=== PATIENT | female | born 1970 | race Two or more races ===

== ENCOUNTER → 2025-03-01 | Outpatient (CLI) | payer MEDICAID, SELFPAY ==
--- NOTE | 2025-03-01 14:14 | XR_ITS ---
Examination: CT abdomen without intravenous contrast. Coronal 2-D reconstructions. Sagittal 2-D reconstructions. Date and time of exam:March 01, 2025 1449 hours INDICATIONS: Right upper abdominal pain beginning one week ago CTDI: vol (mGy): 12.9 DLP: (mGycm): 537 Technique: Axial images of the abdomen have been obtained, 3 mm slice thickness, without intravenous contrast 2-D sagittal coronal reconstructions Low dose protocols were performed. One or more of the following dose reduction techniques were used; automated exposure control, adjustment of the mA and/or KV according to patient size, use of iterative reconstruction technique. Findings: No focal liver or splenic lesions Absent gallbladder No common bile duct stones noted No pancreatic or adrenal mass Moderate renal parenchymal scar formation No renal or ureteral calculi, no hydronephrosis Aorta normal size No pericecal inflammatory change No bowel obstruction IMPRESSION: No acute process in the abdomen Given the patient's presentation, consider hepatobiliary sonography follow-up
== END | disposition home or self-care (01) ==
LOC: SCAT 13:49
PROVIDERS: PCP Nurse Practitioner Family; Referring Provider Nurse Practitioner Family; Visit Provider Nurse Practitioner Family
DX: R19.01 Right upper quadrant abdominal swelling, mass and lump (principal)
CPT/HCPCS: 74150

== ENCOUNTER → 2025-06-25 | Outpatient (CLI) | payer MEDICAID, SELFPAY ==
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
== END | disposition home or self-care (01) ==
LOC: SNUC 09:37
PROVIDERS: PCP Physician Assistant; Referring Provider Nurse Practitioner Family; Visit Provider Nurse Practitioner Family
DX: R19.01 Right upper quadrant abdominal swelling, mass and lump (principal)
CPT/HCPCS: 78226; A9537

== ENCOUNTER 2025-09-02 17:36 | Emergency (ER) | payer MEDICAID, SELFPAY ==
[2025-09-02 17:46] VITALS: PULSE 78; RESP 16; O2SAT 99
--- NOTE | 2025-09-02 18:00 | PC.NURSE ---
no answer in lobby when called for vital signs
--- NOTE | 2025-09-02 18:17 | PC.NURSE ---
no answer in lobby when called for vital signs
[2025-09-02 18:44] VITALS: BP 130/83; PULSE 88; RESP 18; TEMP 36.9; O2SAT 99; BMI 30.9
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
== END 2025-09-02 22:10 | disposition home or self-care (01) ==
PROVIDERS: Emergency Provider Emergency Medicine; PCP Nurse Practitioner Family
DX: S43.402A Unspecified sprain of left shoulder joint, initial encounter (principal); S13.4XXA Sprain of ligaments of cervical spine, initial encounter; S20.219A Contusion of unspecified front wall of thorax, initial encounter; S09.90XA Unspecified injury of head, initial encounter; V49.40XA Driver injured in collision with unspecified motor vehicles in traffic accident, initial encounter
CPT/HCPCS: 70450; 71250; 72125; 74176; 99282